=== PATIENT | female | born 1960 | race Caucasian/White ===

== ENCOUNTER 2018-11-05 02:36 | Emergency (ER) | payer OTHER, SELFPAY ==
[2018-11-05 02:38] VITALS: BP 174/92; PULSE 106; RESP 12; TEMP 36.5; O2SAT 96; BMI 40.0
--- NOTE | 2018-11-05 02:56 | ED.DCSUM_ITS ---
History of Present Illness Chief Complaint: Abd Pain Informant: Patient Onset: Today Narrative: Stated that she has been having abdominal pain since yesterday. Is been bothering her all day. It is a lower abdominal sharp discomfort. It waxes and wanes. It does not seem to hurt her too much currently. The patient stated she felt like she had a fever when she woke up tonight at 101. She took a month Maxalt because she had a headache. She denies nausea vomiting but has had 5 episodes of diarrhea since yesterday. It is loose in nature. No history of colitis or diverticulitis. No sick contacts. Her gallbladder has been resected remotely. Current severity is mild at this time. Denies any urinary symptoms. Past Medical History - Allergies and Home Meds Allergies/Adverse Reactions: Allergies KELLEY Inhibitors Adverse Reaction (Verified 11/05/18 02:37) Other Primary Care Physician: Oumou Sarabia MD [Primary Care Provider] - Past Medical History: - - Reviewed Surgical History: cholecystectomy Smoking Status: Never smoker Alcohol: None Drugs: None Review of Systems General: Reports: Fever. Denies: Chills, Sweats Eyes: Denies: Visual changes - bilaterally, Diplopia ENT: Denies: Rhinorrhea, Sore throat Cardiovascular: Denies: Chest pain, Palpitations Respiratory: Denies: Dyspnea, Cough, Dyspnea on exertion Gastrointestinal: Reports: Abdominal pain, Diarrhea. Denies: Nausea, Vomiting, Melena, Hematochezia Genitourinary: Denies: Dysuria, Hematuria, Frequency Musculoskeletal: Denies: Back pain, Extremity Pain Skin: Denies: Rash, Wounds Neurological: Denies: Headache, Weakness, Numbness Physical Exam Vital Signs/Narrative: Vital Signs Temp Pulse Resp BP Pulse Ox 11/05/18 02:38 97.7 F L 106 H 12 174/92 H 96 General: Well nourished, Well developed, No Acute Distress Head: Normocephalic, Atraumatic Eyes: Perrl, EOMI ENT: Moist mucous membranes, No rhinorrhea Neck: Supple, Nontender Cardiovascular: Regular rate, Regular rhythm, No murmurs Respiratory: No distress, CTA bilaterally, Chest nontender Abdomen: Soft, Nondistended, Normal bowel sounds, Tender - Suprapubic and left lower abdominal quadrant tenderness. No guarding or rebound. Negative for: Nontender, Guarding, Rebound tenderness, Pulsatile mass, Inguinal hernia, Umbilical hernia Back: Nontender, Normal Inspection Extremities: Nontender, No edema Skin: Normal color, No rash Neurological: Alert, Oriented x3, Cranial nerves II-XII grossly intact, Normal Strength, Normal Sensation Psychological: Normal affect, Normal Mood Diagnostic/Tx/Re-eval - Medical Decision Making Patient initially did not want anything for discomfort as it was mild. Lab work obtained lab work unremarkable except for a white count of 15.2 with slight left shift. Urinalysis negative. Lipase and liver function normal. Patient consented to CT abdomen pelvis which was obtained with IV contrast. Patient given IV fluids as well as a dose of Toradol for her pain. CT scan shows left- sided diverticulitis without abscess or rupture. Patient given Cipro and Flagyl. I feel she can be discharged home. She does not want pain medication. Will be given these for 10 days as well as Zofran. We will follow-up with Dr. Del Toro as well as her family doctor. Will return if she worsens I did tell the patient that she has some mild hydronephrosis on the right side. The radiologist felt this might be congenital. The patient will follow-up as an outpatient for this and is asymptomatic ED Disposition - Plan for ED Patient: Disposition: Home or Assisted Living Diagnosis: Acute diverticulitis Instructions: Diverticulitis Prescriptions: Ciprofloxacin [Cipro] 500 mg PO BID #20 tab Prescription Printed metroNIDAZOLE [Flagyl] 500 mg PO Q8H #30 tab Prescription Printed Ondansetron [Zofran Odt] 4 mg PO Q8H PRN PRN #10 tab PRN Reason: Nausea Prescription Printed Referrals: Oumou Sarabia MD [Primary Care Provider] - Dell Del Toro MD [STAFF PHYSICIAN] -
[2018-11-05 03:10] LABS: Bacteria 0 SEEN /hpf (None Seen); Mucous, Urine 0 SEEN /hpf (<or=2+); White Blood Cells 0 SEEN /hpf (0-5)
[2018-11-05 03:13] LABS: Absolute Lymphocyte Count 1.88 X10^3/uL (0.83-4.51); Absolute Neutrophil Count 11.5 X10^3/uL (2.0-7.7); Basophil# 0.06 X10^3/uL; Basophil% 0.4 % (0-1); Hematocrit 34.7 % (37-47); Hemoglobin 11.1 g/dL (12.0-15.0); Lymphocyte # 1.88 X10^3/ul (4.0); Lymphocyte % 12.4 % (19-41); Mean Corpuscular Hgb 25.4 pg (27.0-32.0); Mean Corpuscular Volume 79.4 fL (81-99); Mean Platelet Vol. 9.4 fl (6.2-12.0); Monocyte# 1.42 X10^3/uL; Monocyte% 9.3 % (0-10); NRBC Flagged by Analyzer 0 % (0-5); Neutrophil # 11.47 X10^3/uL (2.7-7.7); Neutrophil % 75.4 % (47-70); Platelet Count 321 K/mm3 (150-450); RBC Distribution Width CV 15.5 % (11.6-14.6); RBC Distribution Width SD 44.9 fl (35.1-43.9); Red Blood Count 4.37 M/mm3 (4.2-5.4); White Blood Count 15.2 K/mm3 (4.4-11.0)
[2018-11-05 03:19] LABS: Color, Urine Yellow (Yellow); Glucose, Dipstick Normal (Normal); Ketone-Dipstick 5 mg/dl (Negative); Leukocyte Esterase-Dipstick 25 /ul (Negative); Nitrite-Dipstick Negative (Negative); Occult Blood-Urine 50 /ul (Negative); Protein-Dipstick Negative (Negative); Urine Bilirubin Dipstick Negative (Negative); Urine Clarity Clear (Clear); Urine Urobilinogen Normal (Normal); Urine pH 6.5 (5.0 - 8.0)
[2018-11-05 03:21] LABS: Red Blood Cells-Urine 0-5 SEEN /hpf (0-5); Squamous Epithelial Cells - UA 0-5 SEEN /hpf (5-10)
[2018-11-05 03:29] LABS: ALB/GLOB Ratio 0.9 RATIO (0.9-2.4); AST(SGOT) 12 U/L (15-37); Alanine Aminotransfer ALT/SGPT 23 U/L (13-56); Albumin, Serum 3.5 g/dL (3.2-5.0); Alkaline Phosphatase 89 U/L (45-117); Anion Gap 10 (5-15); BUN 15 mg/dL (7-18); BUN/Creat Ratio 17.8 RATIO (10-20); Calcium,Total 8.8 mg/dL (8.5-10.1); Chloride 105 mmol/L (98-107); Creatinine, Serum 0.84 mg/dL (0.55-1.02); EST Glomerular Filtration Rate 74 mL/min (>60); Est Glom Filt Rate - Afr Amer 90 mL/min (>60); Estimated Creatinine Clearance 61.12 ml/min; Globulin 4.1 g/dL (2.2-4.2); Glucose 108 mg/dL (74-106); Lipase 78 U/L (73-393); Potassium 3.9 mmol/L (3.5-5.1); Protein, Total 7.6 g/dL (6.4-8.2); Sodium Level 141 mmol/L (136-145)
--- NOTE | 2018-11-05 03:40 | CT_ITS ---
LLQ PAIN/LOW GRADE FEVER. Prior cholecystecctomy. EXAMINATION: CT Abdomen And Pelvis W/O Contrast TECHNIQUE: Helically acquired images were obtained of the abdomen and pelvis following IV contrast. A radiation dose optimization technique was used for this scan. IV Contrast dosage and agent: 100ml Isovue 250 Oral contrast: None. COMPARISON: None FINDINGS: Lower thorax: Clear. No pleural effusion or pericardial effusion. Nonvisualization of the gallbladder. No biliary dilatation. Normal liver, spleen, and pancreas. Both kidneys are normal in position. Right pelviectasis and mild right hydronephrosis. The right ureter is nondilated and the appearance is compatible with right UPJ developmental type narrowing. No hydronephrosis or hydroureter on the left. 2 mm calyceal stone, upper pole of the left kidney. Bilateral renal opacification. The atrial glands are not enlarged. Abdominal aorta is normal in caliber. Patent IVC. No ascites or retroperitoneal lymph node enlargement. GI tract: No obstruction. Normal appendix. Marked sigmoid diverticulosis with additional numerous diverticula of the left colon together with additional diverticula within the transverse and right hemicolon. Proximal sigmoid diverticulitis with sigmoid mural thickening and fat streaking within the pericolonic fat. No abscess, pneumoperitoneum, or free fluid seen. Pelvis: Anteverted uterus which is normal in size. As above, sigmoid diverticulitis. No free fluid or lymph node enlargement. Normal urinary bladder. CT/Abdomen/Pelvis W IV Cont ONLY IMPRESSION: 1. Sigmoid diverticulitis. No abscess, free fluid, or pneumoperitoneum. No bowel obstruction. 2. Left renal small nonobstructing stone. 3. Mild right hydronephrosis with nondilated right ureter which appears related to developmental type right UPJ narrowing. If warranted, further evaluation of renal function could be obtained with nuclear diuretic renal scan. Individualized dose optimization techniques were used for this CT. at [id number] Reported and signed by: Ramiro Joyner MD Electronically Signed: Ramiro Joyner, at 4:45 EDT Tel , Service support ,
[2018-11-05] MEDS: Ketorolac 30 MG/ML Syringe IV (04:05)
[2018-11-05] MEDS: 0.9% Normal Saline 1,000 ML 1000 ML IV (04:05)
[2018-11-05] MEDS: Ciprofloxacin 500 MG Tablet PO (05:09)
[2018-11-05] MEDS: metroNIDAZOLE 500 MG Tablet PO (05:09)
[2018-11-05 05:13] VITALS: BP 152/96; PULSE 96; RESP 18; O2SAT 100
== END 2018-11-05 05:14 | disposition home or self-care (01) ==
PROVIDERS: Emergency Provider Emergency Medicine; Family Provider Internal Medicine; PCP Internal Medicine
DX: K57.32 Diverticulitis of large intestine without perforation or abscess without bleeding (principal)
CPT/HCPCS: 74177; 80053; 81001; 83690; 85025; 96361; 96374; 99284; J7030; Q9967; A4216

== ENCOUNTER 2019-12-11 15:11 | Emergency (ER) | payer OTHER, SELFPAY ==
[2019-12-11 15:12] VITALS: BP 164/96; PULSE 85; RESP 15; TEMP 36.6; O2SAT 97; BMI 42.3
--- NOTE | 2019-12-11 15:26 | EKG12_ITS ---
Test Reason : Blood Pressure : / mmHG Vent. Rate : 084 BPM Atrial Rate : 084 BPM P-R Int : 170 ms QRS Dur : 098 ms QT Int : 360 ms P-R-T Axes : 059 026 036 degrees QTc Int : 425 ms Normal sinus rhythm Incomplete right bundle branch block Confirmed by LV DE LUNA, BAILEY ([id number]), editorial clerk GLENN SORENSEN ([id number]) on 12/13/2019 2:02:36 PM Referred By: NASEEM Confirmed By:BAILEY AWAN MD
--- NOTE | 2019-12-11 15:26 | RAD_ITS ---
STUDY: X-RAY CHEST REASON FOR EXAM: Female, 59 years old. BILATERAL LOWER EXT SWELLING TECHNIQUE: Frontal view of the chest COMPARISON: None. FINDINGS: The lungs are clear and expanded. There is no demonstrated pleural abnormality. Normal size heart. Normal mediastinum and farzana. Normal visualized pulmonary arteries. Normal visualized aortic arch and descending thoracic aorta. Normal visualized thoracic spine. Normal visualized ribs, clavicles, and shoulders. BMI severely elevated. There is no demonstrated abnormality of the visualized soft tissue structures of the upper abdomen. RAD/Chest 1 View (Portable) IMPRESSION: Normal x-ray examination of the chest. Electronically Signed: Thiago Mcelroy, at 16:25 EDT Tel , Service support ,
--- NOTE | 2019-12-11 15:26 | ED.VISSUMM ---
- ER Visit Summary Date of Service: 12/11/19 Chief Complaint: Bilateral lower extremity swelling History of Present Illness: The patient is a [address] Sarabia and Dr. العراقي. She reports that she has bilateral leg swelling that began 5 days ago and is gradually increased. She denies any chest pain or palpitations. She reports that she has chronic shortness of breath with her asthma that is unchanged. This is not worsened by laying down. She denies PND or orthopnea. Review of systems: General: No fever, chills, cold sweats. Cardiovascular: No chest pain, palpitations. Respiratory: No cough. Gastrointestinal: No abdominal pain, nausea, vomiting, diarrhea, melena, or hematochezia. Genitourinary: No dysuria, frequency, hematuria. Skin: No rash. Neuro: No headache, numbness, weakness. Physical Examination: Vitals: Stable. Afebrile. General: Well-nourished and well-developed. Head: Normocephalic atraumatic. Neck: Supple, no lymphadenopathy. No JVD. Nontender. Cardiovascular: Regular rate and rhythm. No murmurs. Respiratory: No respiratory distress. Clear to auscultation bilaterally. No crackles or wheezing. Abdominal: Soft, nontender, nondistended, normal bowel sounds. No guarding, rebound, or peritoneal signs. Back: Nontender. Extremities: Nontender, 2+ pitting edema to her lower extremities bilaterally. Skin: Normal color, no rash. Neurologic: Alert and oriented ?3. Cranial nerves II through XII are intact. Normal strength and sensation. Psych: Normal affect. Test Results: EKG is sinus at [address] changes. It is unchanged since 2013. CBC shows a hemoglobin of 10.8 with 11 monocytes and 6 eosinophils. Chem-7 shows a chloride 110. LFTs are normal. Troponin is normal. BNP is 48.8. TSH is 0.33. Clinical Impression(s) from Imaging Studies Chest X-Ray 12/11/19 15:26 IMPRESSION: Normal x-ray examination of the chest. Electronically Signed: Thiago Mcelroy, at 16:25 EDT Tel , Service support , Emergency Department Course and Treatment: Patient rested comfortably while here. Treatment Plan: Patient will be discharged on 20 mg of Lasix for the next 5 days. Instructed to follow with her primary care physician for further evaluation. Return to the emergency department for any worsening symptoms. Disposition: To home in improved and stable condition. Impression: 1. Peripheral edema. This note was generated with [employer] dictation software. It may contain incorrect words, spelling, and punctuation that were not noted in review of the chart prior to signing ED Disposition - Plan for ED Patient: Instructions: ED Peripheral Edema, Bilateral Prescriptions: Furosemide [Lasix] 20 mg PO DAILY #5 tablet Referrals: Oumou Sarabia MD [Primary Care Provider] - 5-7 Days
[2019-12-11 15:50] VITALS: BP 166/117; PULSE 81; RESP 15; O2SAT 96
[2019-12-11 16:01] LABS: Absolute Lymphocyte Count 2.37 X10^3/uL (0.83-4.51); Absolute Neutrophil Count 4.3 X10^3/uL (2.0-7.7); Basophil# 0.06 X10^3/uL; Basophil% 0.7 % (0-1); Eosinophil# 0.46 X10^3/uL; Eosinophils% 5.7 % (0-5); Hematocrit 37.1 % (37-47); Hemoglobin 10.8 g/dL (12.0-15.0); Lymphocyte # 2.37 X10^3/ul (4.0); Lymphocyte % 29.2 % (19-41); Mean Corp Hgb Conc 29.1 g/dL (32-36); Mean Corpuscular Hgb 24.3 pg (27.0-32.0); Mean Corpuscular Volume 83.4 fL (81-99); Monocyte# 0.87 X10^3/uL; Monocyte% 10.7 % (0-10); NRBC Flagged by Analyzer 0 % (0-5); Neutrophil # 4.32 X10^3/uL (2.7-7.7); Neutrophil % 53.3 % (47-70); Platelet Count 368 K/mm3 (150-450); RBC Distribution Width CV 15.8 % (11.6-14.6); RBC Distribution Width SD 47.8 fl (35.1-43.9); Red Blood Count 4.45 M/mm3 (4.2-5.4); White Blood Count 8.1 K/mm3 (4.4-11.0)
[2019-12-11 16:24] LABS: ALB/GLOB Ratio 0.9 RATIO (0.9-2.4); AST(SGOT) 21 U/L (15-37); Alanine Aminotransfer ALT/SGPT 38 U/L (13-56); Albumin, Serum 3.5 g/dL (3.2-5.0); Alkaline Phosphatase 89 U/L (45-117); Anion Gap 5 (5-15); BUN 8 mg/dL (7-18); BUN/Creat Ratio 9.2 RATIO (10-20); Calcium,Total 8.8 mg/dL (8.5-10.1); Chloride 110 mmol/L (98-107); Creatinine, Serum 0.87 mg/dL (0.55-1.02); EST Glomerular Filtration Rate 71 mL/min (>60); Est Glom Filt Rate - Afr Amer 86 mL/min (>60); Estimated Creatinine Clearance 58.31 ml/min; Globulin 3.9 g/dL (2.2-4.2); Glucose 102 mg/dL (74-106); Potassium 3.8 mmol/L (3.5-5.1); Protein, Total 7.4 g/dL (6.4-8.2); Sodium Level 143 mmol/L (136-145); Thyroid Stim Hormone (TSH) 0.33 uIU/mL (0.358-3.74)
[2019-12-11 16:32] LABS: BNP,B-Type NATRIURETIC PEPTIDE 48.8 pg/mL (0-100)
[2019-12-11 17:08] VITALS: BP 147/92; PULSE 68; RESP 17; O2SAT 97
== END 2019-12-11 17:09 | disposition home or self-care (01) ==
LOC: ED 16:25
PROVIDERS: Emergency Provider Emergency Medicine; PCP Internal Medicine
DX: R60.0 Localized edema (principal); J45.909 Unspecified asthma, uncomplicated; I10 Essential (primary) hypertension; M19.90 Unspecified osteoarthritis, unspecified site; E03.9 Hypothyroidism, unspecified; Z79.51 Long term (current) use of inhaled steroids; Z79.899 Other long term (current) drug therapy
CPT/HCPCS: 71045; 80053; 83880; 84443; 84484; 85025; 93005; 99284; A4216

== ENCOUNTER 2021-08-29 17:02 | Emergency (ER) | payer OTHER, SELFPAY ==
[2021-08-29 17:03] VITALS: BP 145/88; PULSE 83; RESP 18; TEMP 36.1; O2SAT 98; BMI 40.4
--- NOTE | 2021-08-29 18:11 | EDS_ITS ---
HPI History of Present Illness Chief Complaint: Nausea/Vomiting/Diarrhea Informant: patient Narrative Narrative: Patient was sent in by primary physician for IV fluids. Patient started with some nausea vomiting Friday night. By Friday the vomiting and really stopped but diarrhea started. Diarrhea continued later Friday. It seems to be trailing off now. She is no longer having watery stools. She is eating and drinking some broth and Jell-O but appetite is still not strong. She just feels overall bit tired. She is still urinating but decreased amount. But there is no dysuria or bad odor. Time and Zofran made her symptoms better. Her nausea is now gone and she does not need anything for that. She has had cholecystectomy. She has had diverticulitis but she is not having any abdominal pain with this. [facility] Medical History (Updated 08/29/21 @ 19:[address] Loi Jimenez MD) Asthma Hypertension Hypothyroidism Migraines Home Medications Albuterol Sulfate [Proair Hfa] 1 - 2 puff INHALATION Q4H PRN PRN 02/09/14 [History Last Taken Unknown] montelukast 10 mg PO DAILY 03/04/14 [History Last Taken Unknown] rizatriptan 5 mg PO .X1 PRN 03/04/14 [History Last Taken Unknown] famotidine [Pepcid AC] 10 mg PO DAILY 03/08/14 [History Last Taken Unknown] fluticasone propionate 1 spray NASAL DAILY 03/08/14 [History Last Taken Unknown] losartan 50 mg PO DAILY 03/08/14 [History Last Taken Unknown] cholecalciferol (vitamin D3) 3,000 unit PO DAILY 11/05/18 [History Last Taken Unknown] levothyroxine 112 mcg PO DAILY 11/05/18 [History Last Taken Unknown] ondansetron 4 mg PO Q8H PRN PRN #10 tab 11/05/18 [Rx Last Taken Unknown] [id number]-kludrhypc-pfatztyj 1 ea IH DAILY 12/11/19 [History Last Taken Unknown] furosemide 20 mg PO DAILY #5 tab 12/11/19 [Rx Last Taken Unknown] loratadine 10 mg PO DAILY 12/11/19 [History Last Taken Unknown] Allergy/AdvReac Type Severity Reaction Status Date / Time KELLEY Inhibitors AdvReac Other Verified 08/29/21 17:02 Social History Smoking Status: Never smoker ROS ROS ED Constitutional Constitutional ED: Denies chills or fever(s) Eyes Eyes: Denies blurry vision ENT ENT ED: Denies rhinorrhea or sore throat Cardiovascular Cardiovascular: Denies chest pain Respiratory/Chest Respiratory/Chest: Denies cough or dyspnea Gastrointestinal Gastrointestinal: Reports diarrhea, nausea and vomiting; Denies abdominal pain, constipation or melena Genitourinary Genitourinary ED: Denies dysuria or hematuria Musculoskeletal Musculoskeletal: Denies myalgias Integumentary Denies rash Neurologic Neurologic: Reports other Details: Mild generalized weakness but nonfocal ; Denies headache(s) Endocrine Endocrinology: Denies polydipsia or polyuria Allergic/Immunologic Allergic/Immunologic ED: Denies urticaria EXAM Physical Exam Const Vital Signs: 08/29/21 17:03 Temperature 97.0 F L Temperature Source Oral Pulse Rate 83 Respiratory Rate 18 Blood Pressure 145/88 H Blood Pressure Mean 107 Pulse Ox 98 Oxygen Delivery Method Room Air Positive well nourished and well developed General Appearance ED: well developed and NAD; Negative for cyanotic or diaphoretic HEENT Reports dry mucous membranes HEENT Narrative: Mildly dry mucous member Mouth ED: Yes dry mucous membranes Mouth: dry mucous membranes Eyes General Eye ED: Negative for pale conjunctiva or scleral icterus Neck no JVD Chest Wall inspection of chest normal Resp normal respiratory effort and clear to auscultation bilaterally Cardio regular rate and regular rhythm GI normal to inspection, nondistended, normoactive bowel sounds and non-tender Palpation: soft Back/Spine no CVA tenderness Extremity normal to inspection Neuro oriented x3 Sensorium / Orientation: alert Psych mental status grossly normal Skin no rashes or lesions noted MDM MDM MDM Narrative Medical decision making narrative: Patient's blood work showed minimally decreased potassium. This is likely from her diarrhea and vomiting. However both the symptoms seem to be gone. She is not tachycardic. She is not showing signs of acute kidney injury. She has Zofran if needed at home. I think she is okay to go home at this time. Lab Data Attestation: I reviewed the patient's lab results. Labs: Laboratory Results - last 24 hr 08/29/21 18:23 Sodium 138 Potassium 3.3 L Chloride 102 Carbon Dioxide 31.0 Anion Gap 5 BUN 12 Creatinine 0.86 Estim Creat Clear Calc 57.55 Est GFR (MDRD) Af Amer 87 Est GFR (MDRD) Non-Af 72 BUN/Creatinine Ratio 14.0 Glucose 93 Calcium 8.7 Discharge Plan Triage Chief Complaint: Nausea/Vomiting/Diarrhea ED Provider: Loi Jimenez Dx/Rx/DC Orders Clinical Impression: Nausea vomiting and diarrhea, Dehydration Instructions: ED Diet for Vomiting or ... Prescriptions: No Action Albuterol Sulfate [Proair Hfa] 8.5 GM Hfa.Aer.Ad 1 - 2 puff inhalation Q4H PRN PRN (Reason: Shortness Of Breath) RF: 0 montelukast 10 MG tablet 10 mg PO DAILY RF: 0 rizatriptan 5 MG tablet 5 mg PO .X1 PRN RF: 0 losartan 50 MG tablet 50 mg PO DAILY RF: 0 famotidine [Pepcid AC] 10 MG tablet 10 mg PO DAILY RF: 0 fluticasone propionate 1 SPRAY Nasal.Sry 1 spray NASAL DAILY RF: 0 levothyroxine 112 MCG tablet 112 mcg PO DAILY RF: 0 cholecalciferol (vitamin D3) 1,000 UNIT tablet 3,000 unit PO DAILY RF: 0 ondansetron 4 MG tablet 4 mg PO Q8H PRN PRN (Reason: Nausea) Qty: 10 RF: 0 loratadine 10 MG capsule 10 mg PO DAILY RF: 0 ggucmwetfyv-jhbpiylhj-lbqigfjq 1 EACH blister with device 1 ea IH DAILY RF: 0 furosemide 20 MG tablet 20 mg PO DAILY Qty: 5 RF: 0 Primary Care Provider: Oumou Sarabia Referrals: Oumou Sarabia MD [Primary Care Provider] - 1-2 Days if not improving Disposition Disposition: Home, Self Care
[2021-08-29] MEDS: 0.9% Normal Saline 1,000 ML 1000 ML IV (18:25)
[2021-08-29 18:50] LABS: Anion Gap 5 (5-15); BUN 12 mg/dL (7-18); Calcium,Total 8.7 mg/dL (8.5-10.1); Chloride 102 mmol/L (98-107); Creatinine, Serum 0.86 mg/dL (0.55-1.02); EST Glomerular Filtration Rate 72 mL/min (>60); Est Glom Filt Rate - Afr Amer 87 mL/min (>60); Estimated Creatinine Clearance 57.55 ml/min; Glucose 93 mg/dL (74-106); Potassium 3.3 mmol/L (3.5-5.1); Sodium Level 138 mmol/L (136-145)
[2021-08-29 19:53] VITALS: PULSE 67; RESP 16; O2SAT 97
== END 2021-08-29 20:00 | disposition home or self-care (01) ==
PROVIDERS: Emergency Provider Emergency Medicine; PCP Internal Medicine; Visit Provider Emergency Medicine
DX: R11.2 Nausea with vomiting, unspecified (principal); I10 Essential (primary) hypertension; E86.0 Dehydration; Z87.19 Personal history of other diseases of the digestive system; R19.7 Diarrhea, unspecified; J45.909 Unspecified asthma, uncomplicated; E03.9 Hypothyroidism, unspecified; Z79.899 Other long term (current) drug therapy; Z79.890 Hormone replacement therapy
CPT/HCPCS: 80048; 96360; 96361; 99283; A4216

== ENCOUNTER 2024-07-16 15:21 | Outpatient (CLI) | payer OTHER, SELFPAY ==
--- NOTE | 2024-07-16 15:34 | MRI_ITS ---
EXAM: MRI of the brain and orbits without and with intravenous contrast. CLINICAL HISTORY: Thyroid eye disease. Exophthalmos. Right eye larger than left. COMPARISON: None available TECHNIQUE: Multi planar, multisequence MRI images of the brain/orbits were obtained without and with intravenous contrast. 20 cc Clariscan IV contrast was administered. FINDINGS: Are intact. Moderate degenerative disc disease at C4-5. The included cervical spinal cord is unremarkable. Included extracranial soft tissues show no specific abnormality. Major basilar intracranial flow voids are present. Paranasal sinuses and mastoid air cells clear. Prominence of the cortical sulci and ventricular system, compatible with moderate brain parenchymal atrophy. Tiny amounts of fluid signal in the mastoid air cells, greatest on the right. There are no areas of restricted diffusion. On the FLAIR sequence, there are a few scattered tiny foci of increased T2/FLAIR signal in the subcortical white matter of the cerebral hemispheres. There is motion artifact on the postcontrast images. No areas of abnormal brain parenchymal enhancement. No cerebellopontine angle mass lesion. There is bilateral exophthalmos, greatest on the right. The orbits and globes are symmetric. The extraocular muscles are in symmetric in size and enhancement. The optic nerves are symmetric in signal and enhancement. No intraorbital mass demonstrated. There is no mass effect on the optic chiasm. 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 No focal MRI abnormality of the orbits/globes. The extraocular muscles and optic nerves appear symmetric. Moderate brain parenchymal atrophy. No acute intracranial abnormality or abnor mal brain parenchymal enhancement. A few scattered tiny white matter lesions in the cerebral hemispheres may be on the basis of chronic small-vessel ischemic disease or prior trauma. Tiny amount of fluid signal in the mastoid air cells, greatest on the right. Reading Location: [facility]
== END 2024-07-16 23:59 | disposition home or self-care (01) ==
LOC: MRI 15:25
PROVIDERS: PCP Internal Medicine; Referring Provider Ophthalmology; Visit Provider Ophthalmology
DX: H05.20 Unspecified exophthalmos (principal)
CPT/HCPCS: 70543; A9575